=== PATIENT | female | born 1980 | race Two or more races ===

== ENCOUNTER → 2017-09-06 | Outpatient (CLI) | payer OTHER ==
[~2017-09-06] MED LIST: LIDOCAINE WITH 8.4% SOD BICARB 3 ML DISP.SYRIN. INJ
== END | disposition home or self-care (01) ==
LOC: US 13:31
DX: N60.32 Fibrosclerosis of left breast (principal); N60.42 Mammary duct ectasia of left breast; N64.89 Other specified disorders of breast
CPT/HCPCS: 19081; 19083; 76942; 77065; 88305; C1713